=== PATIENT | female | born 1955 | race Caucasian/White ===

== ENCOUNTER 2024-07-15 10:04 | Day surgery (SDC) | payer MEDICARE, BC ==
[2024-07-15] MEDS: SODIUM CHLORIDE 0.9% 500 ML 500 ML IV ONE (10:13)
[2024-07-15 10:25] VITALS: TEMP 98.2
[2024-07-15] MEDS: BENZOCAINE SPRAY 1 EACH MM ONE (12:57)
[2024-07-15] MEDS: fentaNYL (PF) 50 MCG/ML 2 ML AMP IVP ONE (12:59)
[2024-07-15] MEDS: MIDAZOLAM 2 MG/2 ML VIAL IVP ONE (12:59)
[2024-07-15 13:23] VITALS: RESP 16
[2024-07-15 14:09] VITALS: BP 94/66; PULSE 75
== END 2024-07-15 14:10 | disposition home or self-care (01) ==
LOC: CATHCVL 10:04
PROVIDERS: ATTEND Internal Medicine Interventional Cardiology
DX: Z53.8 Procedure and treatment not carried out for other reasons (principal); R55 Syncope and collapse; I10 Essential (primary) hypertension; F17.200 Nicotine dependence, unspecified, uncomplicated; Z88.5 Allergy status to narcotic agent; Z87.898 Personal history of other specified conditions
CPT/HCPCS: J2250; J3010